=== PATIENT | female | born 1980 | race Caucasian/White ===

== ENCOUNTER 2020-01-10 12:34 | Emergency (ER) | payer OTHER ==
[~2020-01-10] VITALS: Ht 162.6 cm; Wt 92.3 kg
[2020-01-10] MEDS ORDERED: NS 1,000 ML IV SCH (12:57)
[2020-01-10 13:00] LABS: BASO # 0.1 10^3/uL (0.0-0.2); EOS # 0.1 10^3/uL (0.0-0.5); EOS % 1.8 % (0.0-3.0); HEMATOCRIT 40.2 % (36.0-47.0); HEMOGLOBIN 13.8 g/dl (12.0-15.5); LYMPH # 2.8 10^3/uL (1.5-5.0); LYMPH % 39.5 % (24.0-44.0); MEAN CORPUSCULAR HEMOGLOBIN 30.1 pg (27.0-33.0); MEAN CORPUSCULAR HGB CONC 34.3 g/dl (32.0-36.5); MEAN CORPUSCULAR VOLUME 87.8 fl (80.0-96.0); MONO # 0.7 10^3/uL (0.0-0.8); MONO % 9.3 % (0.0-5.0); NEUTROPHILS # 3.4 10^3/uL (1.5-8.5); NEUTROPHILS % 48.1 % (36.0-66.0); PLATELET COUNT, AUTOMATED 280 10^3/uL (150-450); RED BLOOD COUNT 4.58 10^6/uL (4.00-5.40); WHITE BLOOD COUNT 7.1 10^3/uL (4.0-10.0)
[2020-01-10] MEDS ORDERED: ONDANSETRON 4MG/2ML VIAL (J2405) IV ONE (13:00)
[2020-01-10] MEDS ORDERED: MORPHINE 4 MG/ML 1ML VIAL/SYRINGE (J2270) IV ONE (13:00)
[2020-01-10] MEDS ORDERED: VITA500079 PO (13:17)
[2020-01-10] MEDS ORDERED: DICL1GEL3 TOP (13:17)
[2020-01-10] MEDS ORDERED: IBUP1TAB7 PO (13:17)
[2020-01-10] MEDS ORDERED: B-12100010 PO (13:17)
[2020-01-10] MEDS ORDERED: ALAVTAB PO (13:17)
[2020-01-10] MEDS ORDERED: MIRA3350 PO (13:17)
[2020-01-10] MEDS ORDERED: LISI10TA4 PO (13:17)
[2020-01-10] MEDS ORDERED: ACET1TAB55 PO (13:17)
[2020-01-10] MEDS ORDERED: EFFE75CA2 PO (13:17)
[2020-01-10] MEDS ORDERED: FAMO20TA PO (13:19)
[2020-01-10] MEDS ORDERED: PANT40TA3 PO (13:19)
[2020-01-10] MEDS ORDERED: MAXA10TA14 PO (13:19)
[2020-01-10] MEDS ORDERED: MYRB25TA PO (13:19)
[2020-01-10] MEDS ORDERED: AZEL1SPR3 NARES (13:19)
[2020-01-10] MEDS ORDERED: OLOP0.1D OP (13:19)
[2020-01-10 13:24] LABS: ALBUMIN 4.2 GM/DL (3.2-5.2); ALT/SGPT 20 U/L (12-78); BILIRUBIN,DIRECT 0.2 MG/DL (0.0-0.2); BLOOD UREA NITROGEN 11 MG/DL (7-18); CARBON DIOXIDE LEVEL 22 MEQ/L (21-32); CHLORIDE LEVEL 111 MEQ/L (98-107); CK-MB VALUE MASS < 1.0 NG/ML (<3.6); CPK CREATINE PHOSPHOKINASE 88 U/L (26-192); CREATININE FOR GFR 0.93 MG/DL (0.55-1.30); GLOMERULAR FILTRATION RATE > 60.0 (>58); GLUCOSE, FASTING 91 MG/DL (70-100); LIPASE 171 U/L (73-393); MB/CK RELATIVE INDEX 1.14 (< OR =4); POTASSIUM SERUM 3.8 MEQ/L (3.5-5.1); SODIUM LEVEL 139 MEQ/L (136-145); TOTAL PROTEIN 7.6 GM/DL (6.4-8.2); TROPONIN I < 0.02 NG/ML (< 0.10)
[2020-01-10 13:26] LABS: HCG, SERUM QUALITATIVE NEGATIVE (NEGATIVE)
[2020-01-10] MEDS ORDERED: ISOVUE-370 76% 100ML VIAL (Q9967) As Ordered ONE (13:38)
--- NOTE | 2020-01-10 14:03 | REP ---
Clinical: Acute pleuritic chest pain. Technique: Axial contrast enhanced images from the thoracic inlet to the upper abdomen using 75 ml Isovue 370 intravenous contrast material with multiplanar re-formations. Findings: Satisfactory enhancement of the pulmonary vasculature is achieved and no filling defects are identified to suggest pulmonary embolus. Further evaluation of the mediastinum demonstrates normal thoracic aorta, heart and pericardium. The bilateral lung marr are well aerated and clear without consolidation pleural effusion or pneumothorax. Tracheobronchial tree is patent. No nodule or mass lesion is identified. No adenopathy noted. Surrounding musculoskeletal structures intact Impression: No evidence for pulmonary embolus. No acute mediastinal or pleural parenchymal process. Electronically Signed by Alejandro Verduzco MD 01/10/2020 01:54 P
--- NOTE | 2020-01-10 14:06 | REP ---
Clinical: Left upper quadrant pain. Technique: Axial contrast enhanced images from the lung bases to the pubic symphysis using 100 ml Isovue 370 intravenous contrast material with coronal and sagittal re-formations. Findings: Liver, spleen, pancreas, bilateral adrenal glands and kidneys are normal. Evidence of prior cholecystectomy. The enteric system is without obstruction or acute inflammatory process. Normal terminal ileum and appendix are identified in the right lower quadrant. Pelvis demonstrates normal bladder and age-appropriate uterus/adnexa. No significant ascites. No free air. No adenopathy. Abdominal aorta and vasculature normal. Musculoskeletal structures are intact. Lung bases are clear. Impression: 1. No acute abdominopelvic pathology appreciated. 2. No ascites. No free air. No adenopathy. No focal inflammatory stranding. Electronically Signed by Alejandro Verduzco MD 01/10/2020 01:58 P
[2020-01-10 14:30] VITALS: BP 118/75
--- NOTE | 2020-01-10 20:40 | ECGEPIP ---
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
== END 2020-01-10 14:41 | disposition home or self-care (01) ==
LOC: M ED 12:34
DX: R10.9 Unspecified abdominal pain (principal); I10 Essential (primary) hypertension; K21.9 Gastro-esophageal reflux disease without esophagitis; G43.909 Migraine, unspecified, not intractable, without status migrainosus; Z87.442 Personal history of urinary calculi; Z79.899 Other long term (current) drug therapy
CPT/HCPCS: 71275; 74177; 80048; 80076; 81001; 82550; 82553; 83690; 84484; 84703; 85025; 93005; 93041; 94760; 96374; 96375; 99285; J2270; J2405; Q9967

== ENCOUNTER 2021-04-09 10:42 | Day surgery (SDC) | payer OTHER ==
[~2021-04-09] VITALS: Ht 162.6 cm; Wt 102.3 kg
[~2021-04-09 10:42] MED LIST: ACET1TAB55 PO; ALAVTAB PO; AZEL1SPR3 NARES; B-12100010 PO; DICL1GEL3 TOP; EFFE75CA2 PO; FAMO20TA PO; IBUP1TAB7 PO; LISI10TA22 PO; MAXA10TA14 PO; MIRA3350 PO; MYRB25TA PO; OLOP0.1D OU; PANT40TA29 PO; VITA500079 PO
[2021-04-09] MEDS ORDERED: ACETAMINOPHEN 500 MG TAB PO ONE (11:45)
[2021-04-09] MEDS ORDERED: NS 1,000 ML IV ONE (11:45)
[2021-04-09] MEDS ORDERED: ONDANSETRON 4MG/2ML VIAL IV ONE (11:45)
--- NOTE | 2021-04-09 12:09 | REP ---
INDICATION: L flank pain, h/o stones, hematuria. COMPARISON: 01/10/2020 a contrast-enhanced examination TECHNIQUE: Noncontrast enhanced stone protocol due to left flank pain FINDINGS: There is an unchanged 7 mm size nodule in the right middle lobe lung base images. There are no pleural or pericardial effusions. Limited evaluation of the solid intra-organs show no significant changes from the prior exam. Limited evaluation of the pancreas, adrenal glands, and right kidney show no gross abnormalities or significant changes from the prior exam. There is moderate left-sided hydronephrosis and hydroureter. In the distal left ureter there is an oval-shaped 1 cm sized ureterolith. Limited evaluation of the bowel loops and the mesenteries show no gross abnormalities. There is no free fluid or free air. There is no change in the osseous structures. IMPRESSION: There is a 1 cm sized distal left ureterolith with resultant findings as described above. <Electronically signed by Sriram Nagy > 04/09/21 2003
[2021-04-09] MEDS ORDERED: WELLTAB38 PO (12:10)
[2021-04-09 12:35] LABS: BASO # 0.1 10^3/uL (0.0-0.2); BASO % 0.6 % (0.0-1.0); EOS # 0.1 10^3/uL (0.0-0.5); EOS % 0.6 % (0.0-3.0); HEMATOCRIT 40.5 % (36.0-47.0); HEMOGLOBIN 13.3 g/dl (12.0-15.5); LYMPH # 1.9 10^3/uL (1.5-5.0); LYMPH % 23.2 % (24.0-44.0); MEAN CORPUSCULAR HEMOGLOBIN 29.8 pg (27.0-33.0); MEAN CORPUSCULAR HGB CONC 32.8 g/dl (32.0-36.5); MEAN CORPUSCULAR VOLUME 90.8 fl (80.0-96.0); MONO # 0.6 10^3/uL (0.0-0.8); MONO % 6.9 % (2.0-8.0); NEUTROPHILS # 5.6 10^3/uL (1.5-8.5); NEUTROPHILS % 68.3 % (36.0-66.0); PLATELET COUNT, AUTOMATED 273 10^3/uL (150-450); RED BLOOD COUNT 4.46 10^6/uL (4.00-5.40); WHITE BLOOD COUNT 8.1 10^3/uL (4.0-10.0)
[2021-04-09] MEDS ORDERED: FLOM0.4C39 PO (13:03)
[2021-04-09 13:10] LABS: ALBUMIN 4.2 GM/DL (3.2-5.2); BILIRUBIN,DIRECT 0.2 MG/DL (0.0-0.2); BILIRUBIN,TOTAL 0.7 MG/DL (0.2-1.0); TOTAL PROTEIN 7.5 GM/DL (6.4-8.2)
[2021-04-09] MEDS ORDERED: KETOROLAC 30 MG/ML 1ML VIAL IV ONE (13:45)
[2021-04-09] MEDS ORDERED: MORPHINE 4 MG/ML 1ML VIAL/SYRINGE (J2270) IV ONE (14:55)
[2021-04-09] MEDS ORDERED: CONRAY-60 60% 50ML VIAL (Q9961) As Ordered ONE (15:01)
[2021-04-09] MEDS ORDERED: ONDA4TAB6 PO (15:13)
[2021-04-09] MEDS ORDERED: LORA-622 PO (15:13)
[2021-04-09] MEDS ORDERED: CYCL5TAB PO (15:13)
[2021-04-09] MEDS ORDERED: MYRB50TA PO (15:13)
[2021-04-09] MEDS ORDERED: D31000TA2 PO (15:13)
[2021-04-09] MEDS ORDERED: MOBI4TAB PO (15:13)
[2021-04-09] MEDS ORDERED: propofoL 200 MG/20 ML VIAL As Ordered ONE (16:58)
[2021-04-09] MEDS ORDERED: MIDAZOLAM INJ 2MG/2ML VIAL (J2250 PER 1MG) As Ordered ONE (16:59)
[2021-04-09] MEDS ORDERED: dexameTHASONE 4 MG/ML 1ML VIAL (J1100 PER 1MG) As Ordered ONE (16:59)
[2021-04-09] MEDS ORDERED: LIDOCAINE 2% 100MG/5ML SDV (FOR ANES.) As Ordered ONE (16:59)
[2021-04-09] MEDS ORDERED: ONDANSETRON 4MG/2ML VIAL As Ordered ONE (16:59)
[2021-04-09] MEDS ORDERED: fentaNYL 100 MCG/2 ML INJECTION (J3010) As Ordered ONE ×2 (16:59→18:39)
[2021-04-09] MEDS ORDERED: KETOROLAC 60MG 2ML VIAL As Ordered ONE (17:09)
[2021-04-09] MEDS ORDERED: ROCURONIUM BROMIDE 50 MG/5 ML VIAL As Ordered ONE (17:42)
[2021-04-09] MEDS ORDERED: ceFAZolin 2 GM/D5W 50 ML IV BAG (J0690 PER 500MG) As Ordered ONE (18:07)
[2021-04-09] MEDS ORDERED: LABETALOL 100MG/20ML VIAL As Ordered ONE (18:48)
[2021-04-09] MEDS ORDERED: SUGAMMADEX SODIUM 500 MG/5 ML VIAL (BRIDION) As Ordered ONE (19:03)
--- NOTE | 2021-04-09 19:14 | SMCUROLCON ---
Urology Consultation General Date of Consultation 04/09/21 Reason For Consultation This patient is seen for left flank pain and a 1 cm left ureteral calculus with hydronephrosis. History of Present Illness The patient is a 40-year-old female with a past medical history for ureteral calculi who presented to the emergency room today for left flank pain lasting more than 24 hours. She tells me that the pain started yesterday and persisted all day. She finally presented to the emergency room where a CT scan showed a distal left 1 cm calculus with hydroureteronephrosis. Urology consult was called. The patient has had prior episodes of stones which she passed spontaneously and were much smaller than this current diversion. The other stones were on the right side. Because of the size and obstruction of the stone, she'll be brought to the operating room for laser lithotripsy. Past Medical History Medical History Renal calculi Surgical Hstory Cholecystectomy, wisdom teeth removal Medications Current Medications Current Medications Medications (Trade) Dose Ordered Sig/Broderick Route PRN Reason Start Time Stop Time Status Last Admin Dose Admin Home Med (Med Rec Complete!) ASDIRECTED XX 04/09/21 15:15 04/09/21 15:22 DC Allergies Allergies: Coded Allergies: No Known Allergies (Verified Allergy, Unknown, 01/10/20) Review of Systems General: Reports: Normal Appetite; Denies: Fatigue, Malaise Constitutional: Denies: Fever, Chills, Sweats, Weakness, Malaise Eyes: Denies: Pain, Vision change ENT: Denies: Head Aches, Sore Throat, Epistaxis Skin: Denies: Rash, Lesions, Breakdown, Nail Changes Pulmonary: Denies: Dyspnea, Cough Cardiovascular: Denies Chest Pain, Denies Palpitations Gastrointestinal: Denies: Nausea, Vomiting, Abdominal Pain Genitourinary: Denies: Dysuria, Frequency, Incontinence, Hematuria Hematologic: Denies: Bruising, Bleeding Excessively Endocrine: Denies: Polydipsia, Polyphagia, Polyuria Musculoskeletal: Denies: Neck Pain, Back Pain Neurological: Denies: Weakness, Numbness, Incoordination, Change in Speech Psych: Reports: Mood Normal; Denies: Anxiety, Depression Physical Examination General Exam: Moderate Distress EYE EXAM: PERRLA, Conjunctiva & lids normal, EOMI; No: Sclera icteric ENT EXAM: Atraumatic, Mucous membr. moist/pink, Pharynx Normal Neck Exam: Supple; No: JVD, thyromegaly Chest Exam: Clear to auscultation, Normal air movement Heart Exam: Rate Normal, Regular Rhythm, Normal S1, Normal S2; No: Murmurs, Rubs Abdomen Exam: Normal Bowel Sounds, Soft; No: Tenderness, Hepatospenomegaly Skin Exam: Nl turgor and temperature; No: Rash, Breakdown Neuro Exam: Normal Gait, Normal Speech, Cranial Nerves 3-12 NL, Reflexes 2+ Psych Exam: Mental status NL, Mood NL, Oriented x 3 Vital Signs/I&O Vital Signs Date Time Temp Pulse Resp B/P (MAP) Pulse Ox O2 Delivery O2 Flow Rate FiO2 04/09/21 15:55 97.0 76 18 125/86 (99) 99 Room Air Laboratory Data 24H Labs Laboratory Tests 2 04/09/21 11:18: Urine Color STRAW, Urine Appearance CLEAR, Urine pH 6.0, Urine Specific [place] 1.005, Urine Protein NEGATIVE, Urine Glucose (UA) NEGATIVE, Urine Ketones NEGATIVE, Urine Blood 2+H, Urine Nitrite NEGATIVE, Urine Bilirubin NEGATIVE, Urine Urobilinogen 0.2, Urine Leukocyte Esterase NEGATIVE, Urine WBC (Auto) 2, Urine RBC (Auto) 3, Urine Hyaline Casts (Auto) 0, Urine Bacteria (Auto) NEGATIVE, Urine Squamous Epithelial Cells 0, Urine Mucus (Auto) SMALL, Urine Sperm (Auto) 04/09/21 12:15: Immature Granulocyte % (Auto) 0.4, Neutrophils (%) (Auto) 68.3H, Lymphocytes (%) (Auto) 23.2L, Monocytes (%) (Auto) 6.9, Eosinophils (%) (Auto) 0.6, Basophils (%) (Auto) 0.6, Neutrophils # (Auto) 5.6, Lymphocytes # (Auto) 1.9, Monocytes # (Auto) 0.6, Eosinophils # (Auto) 0.1, Basophils # (Auto) 0.1, Nucleated Red Blood Cells % (auto) 0.0 04/09/21 12:30: POC Glucose (Misc Panel) 111H, POC Sodium (Misc Panel) 141, POC Potassium (Misc Panel) 4.1, POC Chloride (Misc Panel) 108, POC Total CO2 (Misc Panel) 23.0, POC Blood Urea Nitrogen (Misc Panel 10, POC Ionized Calcium (Misc Panel) 5.0, POC Creatinine (Misc Panel) 1.0, POC Hematocrit (Misc Panel) 39.0 04/09/21 12:31: Total Bilirubin 0.7, Direct Bilirubin 0.2, Aspartate Amino Transf (AST/SGOT) 21, Alanine Aminotransferase (ALT/SGPT) 33, Alkaline Phosphatase 77, Total Protein 7.5, Albumin 4.2, Albumin/Globulin Ratio 1.3, Lipase 95 CBC/BMP Laboratory Tests 04/09/21 12:15 Microbiology Microbiology 04/09/21 Respiratory Virus Panel (PCR) (ASAD) - Final, Complete Assessment Distal left ureteral calculus with obstruction Plan Patient will be taken to the operating room for cystoscopy retrograde pyelogram, laser lithotripsy and stent insertion. The possible alternatives were discussed and possible complications were discussed including infection, pain, perforation, strictures, bleeding. She accepted these risks and will be brought to the operating room for the procedure. SERGIO NETTLES MD April 09, 2021 19:14
--- NOTE | 2021-04-09 19:18 | ROOPDOC ---
[facility] Report Of Operation Report of Operation DATE OF PROCEDURE: 04/09/21 PREPROCEDURE DIAGNOSES: Left ureteral calculus POSTPROCEDURE DIAGNOSES: Left ureteral calculus PROCEDURE: Cystoscopy, left retrograde pyelogram, ureteroscopic laser lithotripsy, stone extraction and stent insertion, x-ray interpretation and fluoroscopy SURGEON: Zhao Beard MD GOLF BALL COVER TREATER: None ANESTHESIA: Gen. ESTIMATED BLOOD LOSS: Approximately 2 mL. COMPLICATIONS: None REMARKS: . PROCEDURE NOTE: Patient was brought to the operating room for laser lithotripsy for treatment of a obstructing distal left ureteral calculus DESCRIPTION OF PROCEDURE: The patient was placed on the table in supine position, given general anesthesia, placed in lithotomy position, prepped with Betadine paint, draped in aseptic manner and timeout was performed. A #22 Nigerian cystoscope was inserted at the meatus and advanced under direct vision of a 30 lens to the bladder where the mucosa was evaluated and found to be normal. The left ureteral orifice was then catheterized with a 5 Nigerian Pollack catheter. Retrograde injection of 10 mL of Conray showed the patient had a distal left obstructing calculus with maximal hydroureteronephrosis. A wire was then passed around the stone and the cystoscope was exchanged for a short semirigid ureteroscope. This was passed up to the stone with the aid of a second working wire. The stone was trapped in a basket but could not be extracted. It was then opened and dismantled. The laser lithotriptor was then used to break the stone into small fragments. Stone was then retrieved using a stone basket. When all the fragments were removed, the ureteroscope was exchanged for a cystoscope and a 6 Nigerian double-J stent was passed over the safety wire up to the renal pelvis where it curled well when the wire was removed. The bladder and also curled well in the wire was removed. The bladder was then drained, cystoscope was removed and the patient was awakened and sent to recovery room in stable condition having tolerated procedure well. Fluoroscopy was used throughout the case and interpreted throughout the case to the evaluate the stone and performed stent insertion and ureteroscopy. The stent will be removed in 2 weeks in the office. All ZHAO BEARD MD April 09, 2021 19:18
[2021-04-09] MEDS ORDERED: METOCLOPRAMIDE INJ 10MG/2ML VIAL (J2765 PER 1) As Ordered ONE (19:27)
[2021-04-09] MEDS ORDERED: oxyCODONE 5MG TAB PO PRN (19:30)
[2021-04-09] MEDS ORDERED: ONDANSETRON 4MG/2ML VIAL IV PRN (19:30)
[2021-04-09] MEDS ORDERED: fentaNYL 100 MCG/2 ML INJECTION (J3010) IV PRN (19:30)
[2021-04-09] MEDS ORDERED: METOCLOPRAMIDE INJ 10MG/2ML VIAL (J2765 PER 1) IV PRN (19:30)
[2021-04-09] MEDS ORDERED: LR 1,000 ML IV SCH (19:30)
[2021-04-09 20:30] VITALS: BP 132/89
[2021-04-16 20:08] LABS: Ca Ox Monohydrate 100 % (.); Size 3x2 mm (.)
== END 2021-04-09 20:35 | disposition home or self-care (01) ==
LOC: M ED 10:42 → M SDC 17:06
PROVIDERS: ATTEND Urology
DX: N20.1 Calculus of ureter (principal); N23 Unspecified renal colic; R91.1 Solitary pulmonary nodule; I10 Essential (primary) hypertension; K21.9 Gastro-esophageal reflux disease without esophagitis; E66.9 Obesity, unspecified; Z68.38 Body mass index [BMI] 38.0-38.9, adult; Z79.899 Other long term (current) drug therapy; Z87.440 Personal history of urinary (tract) infections
CPT/HCPCS: 52356; 74176; 74420; 80047; 80076; 81001; 82365; 83690; 85025; 87798; 88300; 96361; 96374; 96375; 99284; C2617; J0690; J1100; J1885; J2250; J2270; J2405; J2765; J3010; Q9961

== ENCOUNTER → 2021-04-16 | Outpatient (CLI) | payer OTHER ==
[~2021-04-16] MED LIST changes: +CARA1TAB6 PO; +CYCL5TAB PO; +D31000TA2 PO; +FLOM0.4C39 PO; +LORA-622 PO; +MOBI4TAB PO; +MYRB50TA PO; +ONDA4TAB6 PO; +SIME180C25 PO; +WELLTAB38 PO
--- NOTE | 2021-04-16 13:25 | REPPI ---
INDICATION: N20.1 URETERAL CALCULUS COMPARISON: None. TECHNIQUE: Supine views of the abdomen and pelvis. FINDINGS: Left ureteral stent in satisfactory position. No obvious urinary tract calcifications are identified. The bowel gas pattern is nonspecific. Evidence for prior cholecystectomy. Skeletal structures intact. IMPRESSION: 1. Left ureteral stent in satisfactory position. No obvious urinary tract calcifications. <Electronically signed by Alejandro Verduzco > 04/16/21 [id number]
== END ==
LOC: M PLAIMG 13:02
PROVIDERS: ATTEND Urology
DX: N20.1 Calculus of ureter (principal)

== ENCOUNTER 2021-04-17 20:21 | Emergency (ER) | payer OTHER ==
[~2021-04-17] VITALS: Ht 162.6 cm; Wt 102.3 kg
[~2021-04-17 20:21] MED LIST changes: -CARA1TAB6 PO; -SIME180C25 PO
[2021-04-17 21:55] LABS: HEMOGLOBIN 12.6 g/dl (12.0-15.5); MEAN CORPUSCULAR HEMOGLOBIN 29.5 pg (27.0-33.0); MEAN CORPUSCULAR HGB CONC 32.3 g/dl (32.0-36.5); MEAN CORPUSCULAR VOLUME 91.3 fl (80.0-96.0); PLATELET COUNT, AUTOMATED 291 10^3/uL (150-450); RED BLOOD COUNT 4.27 10^6/uL (4.00-5.40); WHITE BLOOD COUNT 8.7 10^3/uL (4.0-10.0)
[2021-04-17] MEDS ORDERED: PANTOPRAZOLE 40MG VIAL (C9113 PER 1) IV ONE (22:15)
[2021-04-17] MEDS ORDERED: ONDANSETRON 4MG/2ML VIAL IV ONE (22:15)
[2021-04-17] MEDS ORDERED: GI COCKTAIL 50ML BTL(HYOSCYAMINE/MAALOX/LIDOCAINE VISCOUS)(1:3:1) PO ONE (22:15)
[2021-04-17] MEDS ORDERED: FAMOTIDINE IV BAG 20 MG in IV 1 EA IV ONE (22:15)
[2021-04-17] MEDS ORDERED: SUCRALFATE 1 GM TAB PO ONE (22:15)
[2021-04-17] MEDS ORDERED: NS 1,000 ML IV ONE (22:15)
[2021-04-17 22:34] LABS: ALBUMIN 4.1 GM/DL (3.2-5.2); ALT/SGPT 37 U/L (12-78); BILIRUBIN,DIRECT 0.2 MG/DL (0.0-0.2); BILIRUBIN,TOTAL 0.8 MG/DL (0.2-1.0); CK-MB VALUE MASS < 1.0 NG/ML (<3.6); CPK CREATINE PHOSPHOKINASE 76 U/L (26-192); MB/CK RELATIVE INDEX 1.32 (< OR =4); TOTAL PROTEIN 7.7 GM/DL (6.4-8.2); TROPONIN I < 0.02 NG/ML (< 0.10)
--- NOTE | 2021-04-17 23:27 | REPVR ---
PROCEDURE INFORMATION: Exam: XR Complete Acute Abdomen Series Exam date and time: 04/17/2021 10:49 PM Age: 40 years old Clinical indication: Other: Epigastric pain TECHNIQUE: Imaging protocol: XR complete acute abdomen series, including 2 or more views of the abdomen and a single view chest. COMPARISON: CR ABDOMEN 1 VIEW (KUB) 04/16/2021 1:17 PM FINDINGS: Lungs: Normal. No consolidation. Pleural spaces: Normal. No pleural effusions. No pneumothorax. Heart/Mediastinum: Normal. No cardiomegaly. Gastrointestinal tract: Minimal gas throughout the GI tract, primarily colonic without abnormal dilatation. Mild stool is noted throughout the colon. No abnormal air-fluid levels. Intraperitoneal space: No free air. Bones/joints: Normal. No acute fracture. Soft tissues: Normal. IMPRESSION: 1. Negative chest. 2. Negative abdomen with minimal gas which is within normal limits. Mild stool is noted throughout the colon. Electronically signed by: Fred Hartmann On 04/17/2021 23:27:13 PM
[2021-04-17] MEDS ORDERED: KETOROLAC 30 MG/ML 1ML VIAL IV ONE (23:40)
[2021-04-18 00:38] LABS: LIPASE 94 U/L (73-393)
[2021-04-18] MEDS ORDERED: SIME180C25 PO (01:54)
[2021-04-18] MEDS ORDERED: CARA1TAB6 PO (01:54)
[2021-04-18 02:08] VITALS: BP 135/83
--- NOTE | 2021-04-19 08:44 | ECGEPIP ---
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
== END 2021-04-18 02:09 | disposition home or self-care (01) ==
LOC: M ED 20:21
DX: R10.13 Epigastric pain (principal); I10 Essential (primary) hypertension; K21.9 Gastro-esophageal reflux disease without esophagitis; Z87.442 Personal history of urinary calculi; Z79.899 Other long term (current) drug therapy
CPT/HCPCS: 36415; 74021; 80047; 80076; 82550; 82553; 83690; 84484; 84702; 85027; 93005; 96365; 96366; 96375; 99284; C9113; J1885; J2405

== ENCOUNTER 2021-05-14 16:09 | Emergency (ER) | payer OTHER ==
[~2021-05-14] VITALS: Ht 162.6 cm; Wt 100.0 kg
[~2021-05-14 16:09] MED LIST changes: +CARA1TAB6 PO; +SIME180C25 PO
[2021-05-14 17:25] LABS: BASO % 0.3 % (0.0-1.0); EOS # 0.1 10^3/uL (0.0-0.5); HEMATOCRIT 40.7 % (36.0-47.0); HEMOGLOBIN 13.5 g/dl (12.0-15.5); LYMPH # 1.3 10^3/uL (1.5-5.0); LYMPH % 17.7 % (24.0-44.0); MEAN CORPUSCULAR HEMOGLOBIN 29.9 pg (27.0-33.0); MEAN CORPUSCULAR HGB CONC 33.2 g/dl (32.0-36.5); MEAN CORPUSCULAR VOLUME 90.2 fl (80.0-96.0); MONO # 0.7 10^3/uL (0.0-0.8); MONO % 9.1 % (2.0-8.0); NEUTROPHILS # 5.1 10^3/uL (1.5-8.5); NEUTROPHILS % 71.3 % (36.0-66.0); PLATELET COUNT, AUTOMATED 266 10^3/uL (150-450); RED BLOOD COUNT 4.51 10^6/uL (4.00-5.40); WHITE BLOOD COUNT 7.2 10^3/uL (4.0-10.0)
[2021-05-14] MEDS ORDERED: KETOROLAC 30 MG/ML 1ML VIAL IV ONE (17:25)
[2021-05-14] MEDS ORDERED: METOCLOPRAMIDE INJ 10MG/2ML VIAL (J2765 PER 1) IV ONE (17:25)
[2021-05-14 17:41] LABS: ALBUMIN 4.2 GM/DL (3.2-5.2); ALT/SGPT 459 U/L (12-78); BILIRUBIN,DIRECT 2.8 MG/DL (0.0-0.2); BILIRUBIN,TOTAL 4.1 MG/DL (0.2-1.0); BLOOD UREA NITROGEN 4 MG/DL (7-18); CALCIUM LEVEL 9.6 MG/DL (8.5-10.1); CARBON DIOXIDE LEVEL 21 MEQ/L (21-32); CHLORIDE LEVEL 106 MEQ/L (98-107); CREATININE FOR GFR 0.68 MG/DL (0.55-1.30); GLOMERULAR FILTRATION RATE > 60.0 (>58); GLUCOSE, FASTING 99 MG/DL (70-100); LIPASE 145 U/L (73-393); POTASSIUM SERUM 4.1 MEQ/L (3.5-5.1); SODIUM LEVEL 138 MEQ/L (136-145); TOTAL PROTEIN 7.5 GM/DL (6.4-8.2)
[2021-05-14 17:43] LABS: HCG, SERUM QUALITATIVE NEGATIVE (NEGATIVE)
--- NOTE | 2021-05-14 18:42 | REP ---
INDICATION: elevated LFT's; r/o CBD stone. COMPARISON: Comparison CT study abdomen and pelvis April 09, 2021.. TECHNIQUE: Right upper quadrant sonography. FINDINGS: Scanning through the right upper quadrant the abdomen demonstrates normal size homogeneous liver without focal lesion or biliary ductal dilation. The gallbladder is surgically absent. The common bile duct is at the upper range of normal post cholecystectomy measured at 1.1 cm. The distal CBD is obscured in the pancreatic head by bowel gas. No choledocholithiasis is visualized. No pancreatic abnormality is seen. There is no evidence of ascites or right renal abnormality. The right kidney measures 11.0 x 5.2 x 4.5 cm.. IMPRESSION: Common bile duct is at the upper range of normal post cholecystectomy, 1.1 cm. No common duct stone seen directly by ultrasound. No intrahepatic ductal dilation is seen.. <Electronically signed by Jasbir Dozier > 05/14/21 [id number]
[2021-05-14] MEDS ORDERED: MORPHINE 2 MG/ML 1ML VIAL (J2270) IV ONE ×2 (18:50→23:00)
[2021-05-14 20:26] LABS: RSV AMPLIFICATION NEGATIVE (NEGATIVE)
--- NOTE | 2021-05-14 21:36 | REPVR ---
PROCEDURE INFORMATION: Exam: MR Abdomen Without Contrast, MRCP Exam date and time: 05/14/2021 7:56 PM Age: 40 years old Clinical indication: Abdominal pain; Acute; Prior surgery; Surgery date: 6+ months; Surgery type: Gb removed 6yrs ago; Additional info: Upper abdominal pain; R/O stone TECHNIQUE: Imaging protocol: MR of the abdomen without contrast. Exam focused on the bile ducts and pancreatic ducts. 3D MRCP images were acquired and processed without radiologist supervision. COMPARISON: 1. CT ABD PELVIS W/O CONTRAST 04/09/2021 11:[address] ABD/PEL W/IV CONTRAST ONLY 01/10/2020 1:39 PM FINDINGS: Liver: No mass. Gallbladder and bile ducts: Status post cholecystectomy. There are moderately dilated intrahepatic bile ducts. There is a dilated extrahepatic bile duct with maximal diameter of 10 mm. There is a cystic duct remnant with a low insertion. There is a hypointense filling defect in the distal common bile duct as seen on series 401, image 12. This measures 7 mm in length. The common bile duct distal to this is not dilated. Pancreas: Unremarkable. No ductal dilation. Intraperitoneal space: No fluid collection. Other findings: This is primarily an MRCP with limited noncontrast MRI IMPRESSION: Intrahepatic and extrahepatic biliary duct dilatation with a 7 mm filling defect in the distal common bile duct consistent with obstructive choledochal calculus Electronically signed by: Adal Carlson On 05/14/2021 21:35:29 PM
[2021-05-14 23:00] VITALS: BP 136/77
--- NOTE | 2021-05-15 20:31 | ECGEPIP ---
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
== END 2021-05-14 23:21 | disposition short-term general hospital (02) ==
LOC: EDBD 16:09 → M ED 16:09
DX: K80.20 Calculus of gallbladder without cholecystitis without obstruction (principal); I10 Essential (primary) hypertension; K21.9 Gastro-esophageal reflux disease without esophagitis; Z79.899 Other long term (current) drug therapy; Z87.442 Personal history of urinary calculi; Z98.890 Other specified postprocedural states
CPT/HCPCS: 36415; 74181; 76705; 80048; 80076; 83690; 84703; 85025; 87631; 93005; 96374; 96375; 96376; 99285; J1885; J2270; J2765

== ENCOUNTER → 2021-06-06 | Outpatient (CLI) | payer OTHER ==
--- NOTE | 2021-06-06 14:38 | REP ---
INDICATION: KIDNEY STONE. COMPARISON: None. FINDINGS: Multiple ultrasonographic images of the right kidney show the right kidney to measure 11.9 x 4.7 x 3.7 cm. The renal cortical echotexture is unremarkable. There are no masses. There is good corticomedullary differentiation. There is no hydronephrosis. There are no perinephric fluid collections. Multiple ultrasonographic images of the left kidney show the left kidney to measure 12.7 x 4.6 x 5.1 cm. The renal cortical echotexture is unremarkable. There are no masses. There is good corticomedullary differentiation. There is no hydronephrosis. There are no perinephric fluid collections. IMPRESSION: Unremarkable renal ultrasonography. <Electronically signed by Sriram Nagy > 06/06/21 [id number]
== END ==
LOC: M RAD 14:14
PROVIDERS: ATTEND Nurse Practitioner Family
DX: N20.0 Calculus of kidney (principal)

== ENCOUNTER → 2021-06-11 | Outpatient (CLI) | payer OTHER ==
[2021-06-11 15:39] LABS: BASO % 0.7 % (0.0-1.0); EOS # 0.1 10^3/uL (0.0-0.5); HEMATOCRIT 38.8 % (36.0-47.0); HEMOGLOBIN 12.7 g/dl (12.0-15.5); LYMPH # 2.2 10^3/uL (1.5-5.0); LYMPH % 36.7 % (24.0-44.0); MEAN CORPUSCULAR HEMOGLOBIN 29.6 pg (27.0-33.0); MEAN CORPUSCULAR HGB CONC 32.7 g/dl (32.0-36.5); MEAN CORPUSCULAR VOLUME 90.4 fl (80.0-96.0); MONO # 0.6 10^3/uL (0.0-0.8); MONO % 10.4 % (2.0-8.0); NEUTROPHILS % 49.4 % (36.0-66.0); PLATELET COUNT, AUTOMATED 271 10^3/uL (150-450); RED BLOOD COUNT 4.29 10^6/uL (4.00-5.40)
[2021-06-11 15:51] LABS: INR 0.98; PROTHROMBIN TIME 13.2 SECONDS (12.5-14.3)
[2021-06-11 15:52] LABS: PARTIAL THROMBOPLASTIN TIME 32.5 SECONDS (24.2-38.5)
[2021-06-11 16:10] LABS: ALT/SGPT 31 U/L (12-78); BILIRUBIN,DIRECT 0.2 MG/DL (0.0-0.2); BILIRUBIN,TOTAL 0.8 MG/DL (0.2-1.0); BLOOD UREA NITROGEN 9 MG/DL (7-18); CREATININE FOR GFR 0.79 MG/DL (0.55-1.30); FERRITIN 32 NG/ML (8-252); GLOMERULAR FILTRATION RATE > 60.0 (>58); IRON (FE) 50 UG/DL (50-170); PERCENT SATURATION 13.3 % (13.2-45.0); TOTAL IRON BINDING CAPACITY 376 UG/DL (250-450); TOTAL PROTEIN 7.2 GM/DL (6.4-8.2)
== END ==
LOC: M LAB 13:47
PROVIDERS: ATTEND Internal Medicine Gastroenterology
DX: K80.51 Calculus of bile duct without cholangitis or cholecystitis with obstruction (principal)
CPT/HCPCS: 36415; 80076; 82565; 82728; 82977; 83550; 84520; 85025; 85610; 85730; G0463

== ENCOUNTER → 2021-06-24 | Outpatient (CLI) | payer OTHER ==
[~2021-06-24] MED LIST changes: +FLUO10CA18 PO; +OMEP40CA4 PO
== END ==
LOC: M RAD 16:12
PROVIDERS: ATTEND Internal Medicine Gastroenterology
DX: R10.11 Right upper quadrant pain (principal); R94.5 Abnormal results of liver function studies; K80.51 Calculus of bile duct without cholangitis or cholecystitis with obstruction

== ENCOUNTER 2021-08-21 08:35 | Day surgery (SDC) | payer OTHER ==
[~2021-08-21] VITALS: Ht 162.6 cm; Wt 95.3 kg
[~2021-08-21 08:35] MED LIST changes: -FLUO10CA18 PO; +NS 1,000 ML IV ONE; -OMEP40CA4 PO
[2021-08-21] MEDS ORDERED: propofoL 200 MG/20 ML VIAL As Ordered ONE (10:07)
[2021-08-21] MEDS ORDERED: LIDOCAINE 2% 100MG/5ML SDV (FOR ANES.) As Ordered ONE (10:07)
[2021-08-21 10:40] VITALS: BP 154/88
--- NOTE | 2021-08-21 11:08 | ROOR ---
Patient Name: Rupali Freed Procedure Date: 08/21/2021 9:56 AM Date of : 1980 Age: 40 Room: [facility] Gender: Female Note Status: Finalized Procedure: Colonoscopy Indications: Screening for colorectal malignant neoplasm Providers: Jersey Farooq MD Referring MD: TAMAR BOYLE MD Requesting Provider: Medicines: Monitored Anesthesia Care Complications: No immediate complications. Procedure: Pre-Anesthesia Assessment: - Prior to the procedure, a History and Physical was performed, and patient medications and allergies were reviewed. The patient is competent. The risks and benefits of the procedure and the sedation options and risks were discussed with the patient. All questions were answered and informed consent was obtained. Patient identification and proposed procedure were verified by the physician, the nurse and the anesthesiologist in the procedure room. Mental Status Examination: alert and oriented. Airway Examination: normal oropharyngeal airway and neck mobility. Respiratory Examination: clear to auscultation. CV Examination: normal. Prophylactic Antibiotics: The patient does not require prophylactic antibiotics. Prior Anticoagulants: The patient has taken no previous anticoagulant or antiplatelet agents. ASA Grade Assessment: II - A patient with mild systemic disease. After reviewing the risks and benefits, the patient was deemed in satisfactory condition to undergo the procedure. The anesthesia plan was to use monitored anesthesia care (MAC). Immediately prior to administration of medications, the patient was re-assessed for adequacy to receive sedatives. The heart rate, respiratory rate, oxygen saturations, blood pressure, adequacy of pulmonary ventilation, and response to care were monitored throughout the procedure. The physical status of the patient was re-assessed after the procedure. The Colonoscope was introduced through the anus and advanced to the terminal ileum, with identification of the appendiceal orifice and IC valve. The colonoscopy was performed without difficulty. The patient tolerated the procedure well. The quality of the bowel preparation was good. The terminal ileum, ileocecal valve, appendiceal orifice, and rectum were photographed. Scope insertion time was 2 minutes. Scope withdrawal time was 9 minutes. The total duration of the procedure was 12 minutes. Findings: The perianal and digital rectal examinations were normal. The terminal ileum appeared normal. Normal mucosa was found in the entire colon. Biopsies for histology were taken with a cold forceps from the right colon, left colon and rectosigmoid colon for evaluation of microscopic colitis. Verification of patient identification for the specimen was done by the physician and nurse using the patient's name, date and medical record number. Estimated blood loss was minimal. Non-bleeding external and internal hemorrhoids were found during retroflexion. The hemorrhoids were medium-sized. Impression: - The examined portion of the ileum was normal. - Normal mucosa in the entire examined colon. Biopsied. - Non-bleeding external and internal hemorrhoids. Recommendation: - Patient has a contact number available for emergencies. The signs and symptoms of potential delayed complications were discussed with the patient. Return to normal activities tomorrow. Written discharge instructions were provided to the patient. - High fiber diet. - Continue present medications. - Await pathology results. - Repeat colonoscopy in 10 years for screening purposes. - Telephone GI clinic for pathology results in 2 weeks. - Return to GI clinic if persistent symptoms or new symptoms. - Return to primary care physician. Procedure Code(s): --- Professional --- 38785, Colonoscopy, flexible; with biopsy, single or multiple Diagnosis Code(s): --- Professional --- Z12.11, Encounter for screening for malignant neoplasm of colon K64.8, Other hemorrhoids CPT copyright 2019 [employer]. All rights reserved. The codes documented in this report are preliminary and upon computer repair technician review may be revised to meet current compliance requirements. Jersey Farooq MD Jersey Farooq MD 08/21/2021 11:07:55 AM Electronically signed by Jersey Farooq MD Number of Addenda: 0 Note Initiated On: 08/21/2021 9:56 AM Estimated Blood Loss: Estimated blood loss was minimal.
== END 2021-08-21 11:00 | disposition home or self-care (01) ==
LOC: M OPP 08:35
PROVIDERS: ATTEND Internal Medicine Gastroenterology
DX: R10.30 Lower abdominal pain, unspecified (principal); R19.4 Change in bowel habit; D12.6 Benign neoplasm of colon, unspecified; K64.8 Other hemorrhoids; I10 Essential (primary) hypertension; K21.9 Gastro-esophageal reflux disease without esophagitis; G43.909 Migraine, unspecified, not intractable, without status migrainosus; N32.81 Overactive bladder; G47.30 Sleep apnea, unspecified; Z87.442 Personal history of urinary calculi; Z79.899 Other long term (current) drug therapy; Z82.49 Family history of ischemic heart disease and other diseases of the circulatory system; Z83.3 Family history of diabetes mellitus

== ENCOUNTER 2022-01-20 06:05 | Day surgery (SDC) | payer OTHER ==
[2022-01-20] VITALS (8 sets, daily range): BP systolic 100–137; BP diastolic 56–77
[~2022-01-20] VITALS: Ht 162.6 cm; Wt 96.6 kg
[~2022-01-20 06:05] MED LIST changes: +ACETAMINOPHEN 500 MG TAB PO ONE; -D31000TA2 PO; +FLUO10CA18 PO; +GABAPENTIN 300 MG CAP PO ONE; +LIDOCAINE 1% MDV 20ML VIAL SQ PRN; +LR 1,000 ML IV ONE; -NS 1,000 ML IV ONE; -OLOP0.1D OU; +OLOP5DRO16 OU; +OMEP40CA4 PO; +VITA100093 PO; +ceFAZolin SOD 2 GM in IV 1 EA IV ONE
[2022-01-20] MEDS ORDERED: ROCURONIUM BROMIDE 50 MG/5 ML VIAL As Ordered ONE ×3 (07:00→09:22)
[2022-01-20] MEDS ORDERED: MIDAZOLAM INJ 2MG/2ML VIAL (J2250 PER 1MG) As Ordered ONE (07:00)
[2022-01-20] MEDS ORDERED: propofoL 200 MG/20 ML VIAL As Ordered ONE (07:00)
[2022-01-20] MEDS ORDERED: fentaNYL 250 MCG/5 ML INJECTION As Ordered ONE (07:00)
[2022-01-20] MEDS ORDERED: LIDOCAINE 2% 100MG/5ML SDV (FOR ANES.) As Ordered ONE (07:00)
[2022-01-20] MEDS ORDERED: dexameTHASONE 4 MG/ML 1ML VIAL (J1100 PER 1MG) As Ordered ONE (07:02)
[2022-01-20] MEDS ORDERED: ONDANSETRON 4MG/2ML VIAL As Ordered ONE (07:02)
[2022-01-20] MEDS ORDERED: ACETAMINOPHEN 1000MG 100ML IV BTL (OFIRMEV) (J0131 PER 10MG) As Ordered ONE (07:02)
[2022-01-20 07:08] LABS: HEMOGLOBIN 12.6 g/dl (12.0-15.5); MEAN CORPUSCULAR HGB CONC 33.2 g/dl (32.0-36.5); MEAN CORPUSCULAR VOLUME 87.6 fl (80.0-96.0); PLATELET COUNT, AUTOMATED 311 10^3/uL (150-450); RED BLOOD COUNT 4.34 10^6/uL (4.00-5.40); WHITE BLOOD COUNT 7.5 10^3/uL (4.0-10.0)
[2022-01-20] MEDS ORDERED: SCOPOLAMINE 1MG TRANSDERMAL PATCH TOP ONE (07:15)
[2022-01-20] MEDS ORDERED: BUPIVACAINE HCL 0.25% 30ML VIAL As Ordered ONE (07:18)
[2022-01-20] MEDS ORDERED: FLUORESCEIN 10% (100MG/ML) 5 ML VIAL As Ordered ONE (07:18)
[2022-01-20 07:26] LABS: ALBUMIN 3.9 GM/DL (3.2-5.2); ALT/SGPT 21 U/L (12-78); BILIRUBIN,TOTAL 0.5 MG/DL (0.2-1.0); BLOOD UREA NITROGEN 10 MG/DL (7-18); CALCIUM LEVEL 9.4 MG/DL (8.5-10.1); CARBON DIOXIDE LEVEL 26 MEQ/L (21-32); CHLORIDE LEVEL 106 MEQ/L (98-107); CREATININE FOR GFR 0.98 MG/DL (0.55-1.30); GLOMERULAR FILTRATION RATE > 60.0 (>58); GLUCOSE, FASTING 92 MG/DL (70-100); POTASSIUM SERUM 4.1 MEQ/L (3.5-5.1); SODIUM LEVEL 138 MEQ/L (136-145); TOTAL PROTEIN 7.3 GM/DL (6.4-8.2)
[2022-01-20 07:45] LABS: HCG, SERUM QUALITATIVE NEGATIVE (NEGATIVE)
[2022-01-20] MEDS ORDERED: SUGAMMADEX SODIUM 500 MG/5 ML VIAL (BRIDION) As Ordered ONE (10:34)
[2022-01-20] MEDS ORDERED: TRANEXAMIC ACID 100 MG/ML 10ML VIAL As Ordered ONE (10:37)
[2022-01-20] MEDS ORDERED: PROMETHAZINE INJ 25 MG/ML VIAL (J2550) IV PRN (10:55)
[2022-01-20] MEDS: LR 1,000 ML IV SCH ×2 (10:55→16:13)
[2022-01-20] MEDS ORDERED: ONDANSETRON 4MG/2ML VIAL IV PRN ×2 (11:00→11:10)
[2022-01-20] MEDS ORDERED: SIMETHICONE 80MG CHEW TAB PO PRN (11:00)
[2022-01-20] MEDS ORDERED: MORPHINE 4 MG/ML 1ML VIAL/SYRINGE (J2270) IV PRN (11:00)
[2022-01-20] MEDS ORDERED: oxyCODONE 5MG TAB PO PRN (11:00)
[2022-01-20] MEDS ORDERED: ACETAMINOPHEN 500 MG TAB PO PRN (11:00)
[2022-01-20] MEDS ORDERED: ONDANSETRON 4 MG TAB PO PRN (11:00)
[2022-01-20] MEDS ORDERED: DOCUSATE SODIUM 100MG CAPSULE PO PRN (11:00)
[2022-01-20] MEDS ORDERED: LR 1,000 ML IV SCH (11:10)
[2022-01-20] MEDS ORDERED: METOCLOPRAMIDE INJ 10MG/2ML VIAL (J2765 PER 1) IV PRN (11:10)
[2022-01-20] MEDS: KETOROLAC 30 MG/ML 1ML VIAL IV SCH ×2 (11:41→17:37)
[2022-01-20] MEDS: fentaNYL 100 MCG/2 ML INJECTION IV PRN ×4 (11:42→12:07)
[2022-01-20] MEDS: PERCOCET 5MG/325MG TAB PO PRN ×2 (11:43→12:36)
[2022-01-20] MEDS ORDERED: HYDROMORPHONE HCL 0.5 MG/ 0.5 ML SYRINGE (J1170 PER 1) IV PRN (12:40)
[2022-01-20 14:52] LABS: HEMATOCRIT 32.6 % (36.0-47.0); MEAN CORPUSCULAR HEMOGLOBIN 29.6 pg (27.0-33.0); MEAN CORPUSCULAR VOLUME 91.1 fl (80.0-96.0); RED BLOOD COUNT 3.58 10^6/uL (4.00-5.40); WHITE BLOOD COUNT 12.3 10^3/uL (4.0-10.0)
[2022-01-20 14:53] LABS: MEAN CORPUSCULAR HGB CONC 32.5 g/dl (32.0-36.5); PLATELET COUNT, AUTOMATED 259 10^3/uL (150-450)
[2022-01-20 14:57] LABS: HEMOGLOBIN 10.6 g/dl (12.0-15.5)
[2022-01-20] MEDS: oxyCODONE 5MG TAB PO PRN (18:49)
[2022-01-20 19:38] LABS: HEMATOCRIT 29.9 % (36.0-47.0); HEMOGLOBIN 9.7 g/dl (12.0-15.5); MEAN CORPUSCULAR HEMOGLOBIN 29.6 pg (27.0-33.0); MEAN CORPUSCULAR HGB CONC 32.4 g/dl (32.0-36.5); MEAN CORPUSCULAR VOLUME 91.2 fl (80.0-96.0); PLATELET COUNT, AUTOMATED 247 10^3/uL (150-450); RED BLOOD COUNT 3.28 10^6/uL (4.00-5.40); WHITE BLOOD COUNT 10.1 10^3/uL (4.0-10.0)
[2022-01-20] MEDS ORDERED: FLUoxetine 10 MG CAP PO SCH (21:00)
[2022-01-21] MEDS: LR 1,000 ML IV SCH (00:09)
[2022-01-21 03:00] VITALS: BP 129/69
[2022-01-21 06:00] VITALS: BP 121/63
[2022-01-21] MEDS: KETOROLAC 30 MG/ML 1ML VIAL IV SCH ×2 (06:18)
[2022-01-21 10:05] VITALS: BP 112/54
[2022-01-21] MEDS ORDERED: IBUP80TA PO (10:16)
[2022-01-21] MEDS ORDERED: OXYC-517 PO (10:16)
[2022-01-21] MEDS ORDERED: ACET-683 PO (10:16)
[2022-01-21] MEDS: oxyCODONE 5MG TAB PO PRN (11:50)
[2022-01-21] MEDS ORDERED: IBUPROFEN 800 MG TAB PO SCH (14:00)
== END 2022-01-21 12:10 | disposition home or self-care (01) ==
LOC: M SDC 06:05 → M OBS 13:51 → M SDC 01-21 12:10
PROVIDERS: ATTEND Obstetrics & Gynecology
DX: N84.0 Polyp of corpus uteri (principal); N72 Inflammatory disease of cervix uteri; N88.8 Other specified noninflammatory disorders of cervix uteri; N94.6 Dysmenorrhea, unspecified; N92.0 Excessive and frequent menstruation with regular cycle; I10 Essential (primary) hypertension; R12 Heartburn; F32.9 Major depressive disorder, single episode, unspecified; M54.50 Low back pain, unspecified; G43.909 Migraine, unspecified, not intractable, without status migrainosus; R06.83 Snoring; G47.30 Sleep apnea, unspecified; Z79.899 Other long term (current) drug therapy
CPT/HCPCS: 36415; 58552; 80053; 84703; 85027; 86850; 86900; 86901; 88300; 88307; 93005; 96374; 96376; J0131; J0690; J1100; J1170; J1885; J2250; J2270; J2405; J2765; J3010